=== PATIENT | male | born 1945 ===

== ENCOUNTER 2022-11-16 06:26 | Day surgery (SDC) | payer OTHER ==
[~2022-11-16] VITALS: Ht 175.3 cm; Wt 81.2 kg
[~2022-11-16 06:26] MED LIST: CRESTOR40 MG PO; HYDRODIURIL12.5 MG PO; LEVOTHYROXINE25 MCG PO; LOSARTAN POTAS100 MG PO; PEPCID AC10 MG PO; PROPRANOLOL HCL40 MG PO; XARELTO15 MG PO; ZETIA10 MG PO
[2022-11-16] MEDS ORDERED: OXYC1TAB9 PO (10:49)
== END 2022-11-16 17:50 | disposition home or self-care (01) ==
LOC: CIR.AMB 06:26
PROVIDERS: ATTEND Surgery
DX: K62.5 Hemorrhage of anus and rectum (principal); K64.4 Residual hemorrhoidal skin tags; K64.8 Other hemorrhoids; K64.2 Third degree hemorrhoids; R19.4 Change in bowel habit; Z20.822 Contact with and (suspected) exposure to COVID-19

== ENCOUNTER 2022-11-28 20:49 | Inpatient (IN) | payer OTHER ==
[~2022-11-28] VITALS: Ht 175.3 cm; Wt 71.2 kg
[~2022-11-28 20:49] MED LIST changes: +OXYC1TAB9 PO
--- NOTE | 2022-11-28 21:54 | NUR ---
SE RECIBE MASCULINO ALERTA Y ORIENTADO X3. PTE DE DR JESSICA VAZQUEZ EL CUAL SE REALIZO CHELLE CIRUGIA DE HEMORROIDES EL . HOY SE LE FUERON REMOVIDOS LOS PUNTOS Y PRESENTA SANGRADO ANAL APARNA. SE MIDEN S/V Y SE UBICA
--- NOTE | 2022-11-29 00:49 | NUR ---
PTE EVALUADO POR DR SARITA GONZALEZ [place] [facility]. MS RIVAS EDUCA A PTE SOBRE EL MISOM REFIERE ENTEDER. MS RIVAS LLEVA ACABO VENOPUNCION BAJO MEDIDAS ACEPTICAS. PTE SE MANTIENE BAJO OBSERBACION POR CAMBIO EN BLANCHARD CONDICION. PTE PEND A RESULTADOS DE LAB Y A REALIZACION DE CT ABD PELV W PO CONTRAS.
--- NOTE | 2022-11-29 07:10 | NUR ---
SE RECIBE PTE ALERTA Y ORIENTADO POR 3 EN EL UNIDAD DE SECC K-6 EN CAMA CON BARANDAS ELEVADA Y TIMBRE ACCESIBLE SE OBSERVA VENOPUNCION PATENTE TERESA DE EDEMA, PTE CON LEVE SANGRADO RECTAL, PTE EN ESPERA DEL DR ROBYN LOPEZ PTE SE MANTIENE EN OBSERVACION Y BAJO TRATAMIENTO.
[2022-12-03] MEDS ORDERED: PEPCID AC20 MG PO (12:37)
[2022-12-03] MEDS ORDERED: INTEGRA F CAPS1 EACH PO (12:37)
== END 2022-12-03 12:59 | disposition home or self-care (01) | DRG 379 ==
LOC: ER 20:49 → SEC-K 11-29 18:06 → SURH 11-29 18:06
PROVIDERS: ADMIT Surgery; ATTEND Surgery
PROC: BW21YZZ Computerized Tomography (CT Scan) of Abdomen and Pelvis using Other Contrast (ICD-10-PCS; principal; 2022-11-29)
PROC: 30233N1 Transfusion of Nonautologous Red Blood Cells into Peripheral Vein, Percutaneous Approach (ICD-10-PCS; 2022-12-01)
DX: K62.5 Hemorrhage of anus and rectum (principal); I11.9 Hypertensive heart disease without heart failure; E03.9 Hypothyroidism, unspecified; I25.10 Atherosclerotic heart disease of native coronary artery without angina pectoris; Z95.1 Presence of aortocoronary bypass graft